=== PATIENT | male | born 1965 | race Hispanic/Latino ===

== ENCOUNTER 2021-10-09 11:51 | Inpatient (IN) | payer SELFPAY ==
[2021-10-09 13:44] LABS: ALT (SGPT) 9 U/L (8-55); AST (SGOT) 7 U/L (5-34); Albumin 3.5 g/dL (3.5-5.0); Alkaline Phosphatase 115 U/L (40-110); Anion Gap 15 mmol/L (10-20); BUN (Urea Nitrogen) 63 mg/dL (8.4-25.7); Bilirubin, Total 0.5 mg/dL (0.2-1.2); Calc. Creatinine Clearance 0 mL/min (70-130); Calcium 8.4 mg/dL (7.8-10.44); Carbon Dioxide 18 mmol/L (22-29); Chloride 111 mmol/L (98-107); Globulin 3.5 g/dL (2.4-3.5); Glucose 115 mg/dL (70-105); Potassium 4.9 mmol/L (3.5-5.1); Sodium 139 mmol/L (136-145)
[2021-10-09 13:50] LABS: #Eosinphils 0.1 thou/uL (0.0-0.7); #Lymphocytes 1.5 thou/uL (1.20-3.40); #Monocytes 0.4 thou/uL (0.11-0.59); #Neutrophils 4.7 thou/uL (1.40-6.50); %Basophils 0.6 % (0.0-1.0); %Eosinophils 1.1 % (0.0-10.0); %Lymphocytes 22.3 % (21.0-51.0); %Monocytes 5.6 % (0.0-10.0); %Neutrophils 70.4 % (42.0-75.0); Hemoglobin 9.4 g/dL (14.0-18.0); Mean Corpuscular HGB CONC 33.3 g/dL (32.0-36.0); Mean Corpuscular Hemoglobin 32.1 pg (27.0-31.0); Mean Corpuscular Volume 96.4 fL (78.0-98.0); Mean Platelet Volume 7.9 fL (7.4-10.4); Platelet Count 318 thou/uL (130-400); RBC Distribution Width 13.2 % (11.5-14.5); Red Blood Cell (RBC) Count 2.92 mill/uL (4.70-6.10); White Blood Cell (WBC) Count 6.6 thou/uL (4.8-10.8)
[2021-10-09] MEDS ORDERED: Aspirin Chewable 81 MG TAB ONE ×2 (14:03→14:07)
[2021-10-09] MEDS ORDERED: Ondansetron ODT 4 MG TAB PO PRN (18:35)
[2021-10-09] MEDS ORDERED: Acetaminophen 325 MG TAB PO PRN (18:35)
[2021-10-09] MEDS ORDERED: Dextrose 50% Abboject 50 ML SYRINGE SLOW IVP PRN (18:36)
[2021-10-09] MEDS ORDERED: HumaLOG 300 UNITS/3 ML VIAL SC PRN ×2 (18:36)
[2021-10-09] MEDS ORDERED: Dextrose 5% in Water 1,000 ML IV PRN (18:36)
[2021-10-09] MEDS ORDERED: hydrALAZINE 20 MG/ML VIAL SLOW IVP PRN (18:37)
[2021-10-09] MEDS ORDERED: Sodium Chloride 0.9% 1,000 ML IV SCH (18:45)
[2021-10-09 19:09] VITALS: BMI 29.9
[2021-10-09 20:36] LABS: CKMB 1.8 ng/mL (0-6.6)
[2021-10-09] MEDS: Heparin 5,000 UNITS/ML VIAL SC SCH (22:12)
[2021-10-09] MEDS: Atorvastatin Calcium 40 MG TAB PO SCH (22:12)
[2021-10-10 05:11] LABS: #Eosinphils 0.2 thou/uL (0.0-0.7); #Lymphocytes 1.5 thou/uL (1.20-3.40); #Monocytes 0.4 thou/uL (0.11-0.59); #Neutrophils 3.6 thou/uL (1.40-6.50); %Basophils 0.9 % (0.0-1.0); %Lymphocytes 25.7 % (21.0-51.0); %Monocytes 7.5 % (0.0-10.0); %Neutrophils 62.9 % (42.0-75.0); Hemoglobin 8.4 g/dL (14.0-18.0); Mean Corpuscular HGB CONC 32.8 g/dL (32.0-36.0); Mean Corpuscular Hemoglobin 32.2 pg (27.0-31.0); Mean Corpuscular Volume 98.1 fL (78.0-98.0); Mean Platelet Volume 7.4 fL (7.4-10.4); Platelet Count 282 thou/uL (130-400); RBC Distribution Width 13.4 % (11.5-14.5); White Blood Cell (WBC) Count 5.7 thou/uL (4.8-10.8)
[2021-10-10 05:17] LABS: Hemoglobin A1c 5.9 % (4.0-6.0)
[2021-10-10 05:31] LABS: Anion Gap 13 mmol/L (10-20); BUN (Urea Nitrogen) 61 mg/dL (8.4-25.7); Calc. Creatinine Clearance 13 mL/min (70-130); Calcium 7.9 mg/dL (7.8-10.44); Carbon Dioxide 18 mmol/L (22-29); Cardiac Risk 4.8 (Less than 4.5); Chloride 115 mmol/L (98-107); Cholesterol 133 mg/dl (< 200 Desired); Glucose 115 mg/dL (70-105); HDL Cholesterol 28 mg/dL (>60 Neg Risk); LDL Cholesterol, Calculated 76 mg/dL; Magnesium 1.9 mg/dL (1.6-2.6); Potassium 4.9 mmol/L (3.5-5.1); Sodium 141 mmol/L (136-145); Triglycerides 143 mg/dL (Less than 150)
[2021-10-10 05:36] LABS: Bacteria/HPF None Seen HPF (None Seen); Bilirubin Negative (Negative); Blood, Urine Negative (Negative); Clarity Clear (Clear); Glucose, Urine (Dipstick) 50 mg/dL (Negative); Ketone, Urine Negative (Negative); Leukocyte Negative Leu/uL (Negative); Nitrite Negative (Negative); Protein, Urine (Dipstick) 300 mg/dL (Neg-Trace); RBC/HPF 0-3 HPF (0-3); Specific Gravity, Urine 1.015 (1.002-1.036); Squamous Epithelial 0-3 HPF (0-3); Urobilinogen Normal mg/dL (Less than 2); WBC/HPF 0-3 HPF (0-3); pH, Urine 5.5 (5.0-9.0)
[2021-10-10] MEDS: Heparin 5,000 UNITS/ML VIAL SC SCH ×3 (08:20→20:40)
[2021-10-10] MEDS ORDERED: Aspirin 81 mg Enteric Coated Tablet PO SCH (09:00)
[2021-10-10] MEDS ORDERED: EPOETIN ALFA-EPBX (ESRD) 4,000 UNIT/ML VIAL SC SCH (09:00)
[2021-10-10 12:35] LABS: SARS-CoV-2 PCR by NAA Not Detected (NotDetected)
[2021-10-10] MEDS ORDERED: hydrALAZINE 20 MG/ML VIAL SLOW IVP PRN (16:03)
[2021-10-10] MEDS: NIFEdipine XL 60 MG TAB PO SCH (17:51)
[2021-10-10] MEDS: Ferrous Sulfate 325 MG TAB PO SCH (17:51)
[2021-10-10] MEDS: Atorvastatin Calcium 40 MG TAB PO SCH (20:39)
[2021-10-10 23:49] LABS: Thyroid Stimulating Hormone 1.1473 uIU/mL (0.35-4.94)
[2021-10-11 04:45] LABS: #Eosinphils 0.2 thou/uL (0.0-0.7); #Lymphocytes 1.7 thou/uL (1.20-3.40); #Monocytes 0.5 thou/uL (0.11-0.59); #Neutrophils 3.4 thou/uL (1.40-6.50); %Basophils 0.4 % (0.0-1.0); %Eosinophils 3.2 % (0.0-10.0); %Lymphocytes 29.2 % (21.0-51.0); %Monocytes 9.1 % (0.0-10.0); %Neutrophils 58.2 % (42.0-75.0); Hemoglobin 8.3 g/dL (14.0-18.0); Mean Corpuscular Hemoglobin 32.6 pg (27.0-31.0); Mean Corpuscular Volume 98.9 fL (78.0-98.0); Mean Platelet Volume 7.5 fL (7.4-10.4); Platelet Count 265 thou/uL (130-400); RBC Distribution Width 13.6 % (11.5-14.5); Red Blood Cell (RBC) Count 2.55 mill/uL (4.70-6.10); White Blood Cell (WBC) Count 5.8 thou/uL (4.8-10.8)
[2021-10-11 04:59] LABS: Phosphorus 5.7 mg/dL (2.3-4.7)
[2021-10-11 05:07] LABS: Anion Gap 14 mmol/L (10-20); BUN (Urea Nitrogen) 60 mg/dL (8.4-25.7); Calc. Creatinine Clearance 14 mL/min (70-130); Calcium 7.5 mg/dL (7.8-10.44); Carbon Dioxide 16 mmol/L (22-29); Chloride 114 mmol/L (98-107); Glucose 105 mg/dL (70-105); Potassium 4.7 mmol/L (3.5-5.1); Sodium 139 mmol/L (136-145)
[2021-10-11] MEDS: Heparin 5,000 UNITS/ML VIAL SC SCH ×3 (08:55→19:57)
[2021-10-11] MEDS: Ferrous Sulfate 325 MG TAB PO SCH ×2 (08:56→17:01)
[2021-10-11] MEDS: NIFEdipine XL 60 MG TAB PO SCH (08:56)
[2021-10-11] MEDS: Sodium Bicarbonate Tab 325 MG TAB PO SCH ×3 (08:56→19:57)
[2021-10-11] MEDS: Calcitriol 0.25 MCG CAP PO SCH (08:57)
[2021-10-11] MEDS: Calcium Carbonate 500 MG ChewTAB PO SCH ×3 (08:57→16:59)
[2021-10-11] MEDS: Aspirin 325 mg Enteric Coated Tablet PO SCH (11:40)
[2021-10-11] MEDS ORDERED: Carvedilol 3.125 MG TAB PO SCH (17:00)
[2021-10-11] MEDS: Carvedilol 6.25 MG TAB PO SCH (17:00)
[2021-10-11] MEDS: hydrALAZINE 25 MG TAB PO SCH (19:58)
[2021-10-11] MEDS: Atorvastatin Calcium 40 MG TAB PO SCH ×2 (19:59)
[2021-10-12 05:53] LABS: Anion Gap 16 mmol/L (10-20); BUN (Urea Nitrogen) 64 mg/dL (8.4-25.7); Calc. Creatinine Clearance 13 mL/min (70-130); Calcium 7.7 mg/dL (7.8-10.44); Carbon Dioxide 17 mmol/L (22-29); Chloride 111 mmol/L (98-107); Glucose 128 mg/dL (70-105); Potassium 4.9 mmol/L (3.5-5.1); Sodium 139 mmol/L (136-145)
[2021-10-12 06:20] LABS: #Basophils 0.1 thou/uL (0.0-0.2); #Eosinphils 0.2 thou/uL (0.0-0.7); #Lymphocytes 1.2 thou/uL (1.20-3.40); #Monocytes 0.4 thou/uL (0.11-0.59); #Neutrophils 4.1 thou/uL (1.40-6.50); %Eosinophils 2.9 % (0.0-10.0); %Lymphocytes 19.9 % (21.0-51.0); %Monocytes 6.7 % (0.0-10.0); %Neutrophils 69.5 % (42.0-75.0); Hemoglobin 8.9 g/dL (14.0-18.0); Mean Corpuscular HGB CONC 33.6 g/dL (32.0-36.0); Mean Corpuscular Hemoglobin 33.3 pg (27.0-31.0); Mean Corpuscular Volume 99.2 fL (78.0-98.0); Mean Platelet Volume 7.6 fL (7.4-10.4); Platelet Count 267 thou/uL (130-400); RBC Distribution Width 13.8 % (11.5-14.5); Red Blood Cell (RBC) Count 2.68 mill/uL (4.70-6.10); White Blood Cell (WBC) Count 5.9 thou/uL (4.8-10.8)
[2021-10-12 08:03] VITALS: BP 135/93; TEMP 98.7
[2021-10-12] MEDS: Calcium Carbonate 500 MG ChewTAB PO SCH ×2 (08:42→11:19)
[2021-10-12] MEDS: Ferrous Sulfate 325 MG TAB PO SCH (08:43)
[2021-10-12] MEDS: Aspirin 325 mg Enteric Coated Tablet PO SCH (08:43)
[2021-10-12] MEDS: Sodium Bicarbonate Tab 325 MG TAB PO SCH (08:43)
[2021-10-12] MEDS: hydrALAZINE 25 MG TAB PO SCH (08:43)
[2021-10-12] MEDS: Carvedilol 6.25 MG TAB PO SCH (08:44)
[2021-10-12] MEDS: Calcitriol 0.25 MCG CAP PO SCH (08:44)
[2021-10-12] MEDS: Heparin 5,000 UNITS/ML VIAL SC SCH (08:46)
[2021-10-12] MEDS ORDERED: Dextrose 50% Abboject 50 ML SYRINGE ONE (11:40)
[2021-10-12] MEDS ORDERED: Magnesium 5 GM/10 ML Abboject SYRINGE ONE (11:40)
[2021-10-12] MEDS ORDERED: Amiodarone 150 MG/3 ML VIAL ONE (11:40)
[2021-10-12] MEDS ORDERED: EPINEPHrine 1 MG/10 ML Abboject SYRINGE ONE (11:40)
[2021-10-12] MEDS ORDERED: Sodium Bicarb 50 MEQ/50 ML Abboject 8.4% SYRINGE ONE (11:40)
[2021-10-12] MEDS ORDERED: Calcium Chloride 1 GM/10 ML Abboject SYRINGE ONE (11:40)
[2021-10-13] MEDS ORDERED: FLU VACC QS2021-22(6MOS UP)/PF 60 MCG/0.5 ML SYRINGE IM ONE (09:00)
== END 2021-10-12 16:34 | disposition expired | DRG 683 ==
LOC: ERS 11:51 → ERHOLD 16:56 → NEURO 18:32
PROVIDERS: ADMIT Internal Medicine; ATTEND Internal Medicine
PROC: 5A12012 Performance of Cardiac Output, Single, Manual (ICD-10-PCS; principal; 2021-10-12)
DX: N17.9 Acute kidney failure, unspecified (principal); E87.2 Acidosis; I50.22 Chronic systolic (congestive) heart failure; I13.0 Hypertensive heart and chronic kidney disease with heart failure and stage 1 through stage 4 chronic kidney disease, or unspecified chronic kidney disease; G45.9 Transient cerebral ischemic attack, unspecified; I42.9 Cardiomyopathy, unspecified; I47.2 Ventricular tachycardia; I24.8 Other forms of acute ischemic heart disease; D64.9 Anemia, unspecified; D63.1 Anemia in chronic kidney disease; E78.00 Pure hypercholesterolemia, unspecified; R73.03 Prediabetes; N25.81 Secondary hyperparathyroidism of renal origin; N28.1 Cyst of kidney, acquired; E21.3 Hyperparathyroidism, unspecified; Z20.822 Contact with and (suspected) exposure to COVID-19; I49.01 Ventricular fibrillation; I46.2 Cardiac arrest due to underlying cardiac condition; Z89.422 Acquired absence of other left toe(s); Z87.891 Personal history of nicotine dependence; Z91.14 Patient's other noncompliance with medication regimen; Z89.021 Acquired absence of right finger(s); Z82.3 Family history of stroke
CPT/HCPCS: 36415; 36416; 70450; 70551; 71045; 74176; 76770; 80048; 80053; 80061; 81003; 81015; 82553; 82607; 82746; 83036; 83735; 83930; 83935; 83970; 84100; 84300; 84443; 84484; 85025; 93005; 93306; 93880; J0171; J0282; J1644; J1815; J3475; J7050; Q5105; U0003; U0005